=== PATIENT | male | born 1990 | race Caucasian/White ===

== ENCOUNTER 2021-02-15 10:05 | Emergency (ER) | payer MEDICAID, SELFPAY ==
--- NOTE | ~2021-02-15 | XR_ITS ---
EXAMINATION: XR FOREARM, RIGHT CLINICAL INFORMATION: Pain. Trauma. COMPARISON: None TECHNIQUE: 2 views of the right forearm and 4 views of the right hand and wrist were obtained. FINDINGS: Right forearm: Bone alignment is normal. No fracture or dislocation is seen. Joint spaces are normal. Soft tissues are normal. Right hand and wrist: There is a nondisplaced fracture of the mid right scaphoid bone. No other fracture is seen. Joint spaces are normal. Soft tissues are normal. XR/XR forearm RT 2V IMPRESSION: Right hand and wrist: Nondisplaced fracture of the mid scaphoid bone. Right forearm: Unremarkable exam.
--- NOTE | ~2021-02-15 | XR_ITS ---
EXAMINATION: XR FOREARM, RIGHT CLINICAL INFORMATION: Pain. Trauma. COMPARISON: None TECHNIQUE: 2 views of the right forearm and 4 views of the right hand and wrist were obtained. FINDINGS: Right forearm: Bone alignment is normal. No fracture or dislocation is seen. Joint spaces are normal. Soft tissues are normal. Right hand and wrist: There is a nondisplaced fracture of the mid right scaphoid bone. No other fracture is seen. Joint spaces are normal. Soft tissues are normal. XR/XR hand wrist RT IMPRESSION: Right hand and wrist: Nondisplaced fracture of the mid scaphoid bone. Right forearm: Unremarkable exam.
[2021-02-15 11:15] VITALS: BP 124/77; PULSE 79; RESP 18; TEMP 37; O2SAT 96; BMI 29.2
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
== END 2021-02-15 13:26 | disposition home or self-care (01) ==
PROVIDERS: Emergency Provider Emergency Medicine Emergency Medical Services; PCP Emergency Medicine
DX: S62.024A Nondisplaced fracture of middle third of navicular [scaphoid] bone of right wrist, initial encounter for closed fracture (principal); V86.56XA Driver of dirt bike or motor/cross bike injured in nontraffic accident, initial encounter; Y93.89 Activity, other specified; Y92.9 Unspecified place or not applicable; Y99.9 Unspecified external cause status
CPT/HCPCS: 29125; 73090; 73110; 73130; 99283

== ENCOUNTER 2021-02-21 10:41 | Outpatient (REF) | payer MEDICAID, SELFPAY ==
--- NOTE | ~2021-02-21 | XR_ITS ---
EXAMINATION: RIGHT WRIST WITH SCAPHOID. CLINICAL INFORMATION: Pain in right wrist. COMPARISON: None TECHNIQUE: 5 views. FINDINGS: There is no visible acute fracture, dislocation or subluxation. The intercarpal, radioulnar -carpal and carpometacarpal alignment is normal. The soft tissues are normal. XR/XR wrist RT w scaphoid IMPRESSION: Unremarkable right wrist exam. The scaphoid bone is intact.
--- NOTE | ~2021-02-21 | XR_ITS ---
EXAMINATION: XR WRIST, RIGHT CLINICAL INFORMATION: Right wrist pain. COMPARISON: Most recent right wrist radiographs dated 02/21/2021. TECHNIQUE: AP, oblique, lateral, and scaphoid views of the right wrist. FINDINGS: No acute fracture or dislocation. There is mild sclerosis to the mid pole of the scaphoid with new bone/callus formation, consistent with interval healing of the previously seen nondisplaced scaphoid waist fracture. Normal carpal alignment. No joint space narrowing or marginal osteophytes. No osseous erosion. XR/XR wrist RT w scaphoid IMPRESSION: Healing, nondisplaced scaphoid waist fracture.
== END 2021-02-21 10:42 | disposition home or self-care (01) ==
LOC: HO.XRAY 10:41
PROVIDERS: Visit Provider Orthopaedic Surgery
DX: S62.021A Displaced fracture of middle third of navicular [scaphoid] bone of right wrist, initial encounter for closed fracture (principal)
CPT/HCPCS: 25622; 73110; 99202

== ENCOUNTER → 2021-03-21 13:45 | Outpatient (BNVA) | payer MEDICAID, SELFPAY | PROVIDERS: Visit Provider Orthopaedic Surgery | DX: S62.021D Displaced fracture of middle third of navicular [scaphoid] bone of right wrist, subsequent encounter for fracture with routine healing (principal); F17.200 Nicotine dependence, unspecified, uncomplicated | CPT/HCPCS: 73110; 99212 ==

== ENCOUNTER 2021-04-06 22:04 | Emergency (ER) | payer MEDICAID, SELFPAY ==
--- NOTE | ~2021-04-06 | XR_ITS ---
EXAMINATION: XR CHEST CLINICAL INFORMATION: Chest pain. COMPARISON: None TECHNIQUE: Frontal view of the chest was obtained. FINDINGS: No significant abnormality is noted involving the heart, lungs, mediastinum, bony thorax or soft tissues. XR/XR chest 1V IMPRESSION: Unremarkable chest examination.
[2021-04-06 22:05] VITALS: BP 149/78; PULSE 89; RESP 18; TEMP 36.8; O2SAT 99; BMI 29.2
--- NOTE | 2021-04-06 22:08 | ECG_ITS ---
Test Reason : CHEST PAIN Blood Pressure : / mmHG Vent. Rate : 075 BPM Atrial Rate : 075 BPM P-R Int : 156 ms QRS Dur : 092 ms QT Int : 378 ms P-R-T Axes : 051 053 029 degrees QTc Int : 422 ms Normal sinus rhythm Early repolarization Normal ECG When compared with ECG of 02-DEC-2019 14:56, ST elevation now present in Anterior leads Referred By: Generic ED Physician Electronically Signed By:KASIA PANTOJA
--- NOTE | 2021-04-06 22:31 | ED_ITS ---
HPI - Chest Pain General Chief Complaint: Chest Pain Stated Complaint: CP Time Seen by Provider: 04/06/21 22:31 Source: patient Mode of arrival: ambulatory Limitations: no limitations History of Present Illness HPI narrative: Patient with no known coronary artery disease no other risk factors no history of substance abuse been complaining of pain left chest for last 2 days increases with palpation and movements no nausea no vomiting no shortness of breath it goes to her left upper arm had similar pain multiple t imes in the past. No trauma cough fever Related Data Previous Rx's Medication Instructions Recorded naproxen 500 mg tablet 500 mg PO BID PRN #20 tab 02/15/21 oxycodone-acetaminophen 5 mg-325 1 tab PO TID PRN #9 tab 02/15/21 mg tablet (Percocet) ibuprofen 600 mg tablet 600 mg PO Q6H PRN #20 tab 04/06/21 Allergies Allergy/AdvReac Type Severity Reaction Status Date / Time No Known Allergies Allergy Verified 04/06/21 22:05 Review of Systems Review of Systems: Yes all other systems are reviewed and are negative [facility] Past Medical History Medical History No pertinent past medical history Social History Social History Advance Directives: No Advance Directives Information Provided: Yes Current occupational status: unemployed Current occupation: left hand Physical Exam Vital Signs: Vital Signs: Last Vital Signs Temp 98.2 F 04/06/21 22:05 Pulse 69 04/06/21 22:58 Resp 16 04/06/21 22:58 BP 111/62 04/06/21 22:58 Pulse Ox 98 04/06/21 22:58 Body Mass Index 29.2 Appearance: Alert. Oriented X3. No acute distress. ENT: Pharynx normal. Oral Mucosa moist Neck: Normal inspection. Neck supple. CVS: Normal heart rate and rhythm. Pulses normal. Respiratory: No respiratory distress. Equal air entry bilateral, no wheezing/rales/rhonchi left chest wall tenderness+ Abdomen: Soft and nontender. Bowel sounds are present, Skin: Skin warm and dry. Normal skin color. Normal skin turgor. Extremities: No lower extremity edema. No calf tenderness Neuro: Oriented X 3. MDM - Chest Pain MDM Narrative Medical decision making narrative: Patient has atypical chest pain with heart score of 0 normal EKG chest pain been there for last 2 days listed able on palpation and movements of the left arm. Will give Toradol cardiac enzymes are negative EKG is normal discharge patient home Lab Data Attestation: I reviewed the patient's lab results. Result diagrams: 04/06/21 22:31 04/06/21 22:31 Labs: Lab Results 04/06/21 04/06/21 04/06/21 Range/Units 22:31 22:31 22:31 WBC 9.0 (4.8-10.8) X10*3/uL RBC 4.94 (4.60-5.80) X10*6/uL Hgb 15.1 (14.0-18.0) g/dl Hct 43.4 (42-52) % MCV 87.9 (80-98) fL MCH 30.6 (27.0-33.0) pg MCHC 34.8 (31.0-36.0) g/dl RDW 12.6 (11.0-16.0) % Plt Count 199 (160-400) X10*3/uL MPV 11.3 (9.4-12.4) fL Immature Gran % (Auto) 0.2 (0.0-0.4) % Neut % (Auto) 67.3 (45-73) % Lymph % (Auto) 26.7 (20-40) % Schleicher % (Auto) 4.9 (2-11) % Eos % (Auto) 0.7 (0-4) % Baso % (Auto) 0.2 (0-2) % Lymph # (Auto) 2.4 (1.2-4.9) X10*3/uL Schleicher # (Auto) 0.4 (0.1-1.2) X10*3/uL Eos # (Auto) 0.1 (0.0-0.4) X10*3/uL Baso # (Auto) 0.0 (0.0-0.2) X10*3/uL Abs Immat Gran (auto) 0.02 (0.00-0.03) X10*3/uL Absolute Neuts (auto) 6.1 (2.0-8.3) X10*3/uL Absolute Nucleated RBC 0.000 (0.0-0.012) X10*3/uL Nucleated RBC % (auto) 0.0 (0.0-0.2) /100WBC Sodium 140 (135-145) mmol/L Potassium 3.4 (3.3-5.1) mmol/L Chloride 108 (96-108) mmol/L Carbon Dioxide 24 (22-29) mmol/L Anion Gap 11 L (12-20) BUN 6 L (9-16) mg/dL Creatinine 0.79 (0.5-1.4) mg/dL Estim Creat Clear Calc 162.5 Estimated GFR > 60 Random Glucose 120 H (60-115) mg/dL Calcium 9.1 (8.4-10.2) mg/dL Troponin I High Sens < 3.5 (<3.5-35.0) ng/L ECG Data ECG #1: Interpretation: Normal sinus rhythm rate 75 beats per minute early repolarization changes no acute ST T wave changes acute ischemia Scores Heart Score History: -0- slightly suspicious ECG: -0- normal Age: -0- < or = 45 Risk factory: -0- no risk factors known Troponin: -0- < or = normal limit Score: 0 Risk: 1.7% Discharge Plan Discharge Clinical Impression: Costalchondritis Patient Disposition: Home, Self-Care Instructions: Costochondritis (ED) Additional Instructions: Your chest pain is likely musculoskeletal take ibuprofen for pain Follow-up with PCP if any concerns Prescriptions: New ibuprofen 600 mg tablet 600 mg PO Q6H PRN (Reason: pain) Qty: 20 RF: 0 No Action oxycodone-acetaminophen [Percocet] 5-325 mg tablet 1 tab PO TID PRN (Reason: pain) Qty: 9 RF: 0 naproxen 500 mg tablet 500 mg PO BID PRN (Reason: pain) Qty: 20 RF: 0
[2021-04-06 22:36] LABS: Basophils Percent Auto 0.2 % (0-2); Eosinophils Absolute Auto 0.1 X10*3/uL (0.0-0.4); Eosinophils Percent Auto 0.7 % (0-4); Hematocrit 43.4 % (42-52); Hemoglobin 15.1 g/dl (14.0-18.0); Imm Gran Abs Auto 0.02 X10*3/uL (0.00-0.03); Imm Gran Pct Auto 0.2 % (0.0-0.4); Lymphocytes Absolute Auto 2.4 X10*3/uL (1.2-4.9); Lymphocytes Percent Auto 26.7 % (20-40); MANUAL DIFF FLAG NO; Mean Corpuscular HGB Conc 34.8 g/dl (31.0-36.0); Mean Corpuscular Hemoglobin 30.6 pg (27.0-33.0); Mean Corpuscular Volume 87.9 fL (80-98); Mean Platelet Volume 11.3 fL (9.4-12.4); Monocytes Absolute Auto 0.4 X10*3/uL (0.1-1.2); Monocytes Percent Auto 4.9 % (2-11); Neutrophils Absolute Auto 6.1 X10*3/uL (2.0-8.3); Neutrophils Percent Auto 67.3 % (45-73); Platelet Count 199 X10*3/uL (160-400); Red Blood Count 4.94 X10*6/uL (4.60-5.80); Red Cell Distribution Width 12.6 % (11.0-16.0)
[2021-04-06 22:51] LABS: Anion Gap 11 (12-20); Blood Urea Nitrogen 6 mg/dL (9-16); Calcium 9.1 mg/dL (8.4-10.2); Carbon Dioxide 24 mmol/L (22-29); Chloride 108 mmol/L (96-108); Creatinine Clr Calc Pharmacy 162.5; Estimated Glomerular Filt Rate > 60; Glucose Random 120 mg/dL (60-115); Potassium 3.4 mmol/L (3.3-5.1); Sodium 140 mmol/L (135-145)
[2021-04-06 22:58] VITALS: BP 111/62; PULSE 69; RESP 16; O2SAT 98
[2021-04-06 22:58] LABS: Troponin-I High Sensitivity < 3.5 ng/L (<3.5-35.0)
[2021-04-06] MEDS: Ketorolac Tromethamine 15 MG/ML VIAL 60 MG IM (23:13)
== END 2021-04-06 23:52 | disposition home or self-care (01) ==
PROVIDERS: Emergency Provider Internal Medicine
DX: M94.0 Chondrocostal junction syndrome [Tietze] (principal); R07.9 Chest pain, unspecified; Z79.899 Other long term (current) drug therapy
CPT/HCPCS: 36415; 71045; 80048; 84484; 85025; 93005; 96372; 99284; 99285; J1885

== ENCOUNTER 2023-05-07 16:31 | Emergency (ER) | payer MEDICAID, SELFPAY ==
[2023-05-07 16:56] VITALS: BP 139/87; PULSE 85; RESP 18; TEMP 36.4; O2SAT 97; BMI 31.7
--- NOTE | 2023-05-07 17:00 | ED_ITS ---
HPI - General Adult General Chief complaint: General Medical Stated complaint: can't smell, runny nose, no appetite Time Seen by Provider: 05/07/23 18:44 Source: patient Mode of arrival: ambulatory Limitations: no limitations History of Present Illness HPI narrative: Patient spoke someone at work with COVID yesterday since then complains nasal congestion unable to smell poor appetite body aches patient already received the vaccination against COVID no shortness of breath no significant cough Related Data Previous Rx's Medication Instructions Recorded naproxen 500 mg tablet 500 mg PO BID PRN pain #20 tabs 02/15/21 oxycodone-acetaminophen 5 mg-325 1 tab PO TID PRN pain #9 tabs 02/15/21 mg tablet (Percocet) ibuprofen 600 mg tablet 600 mg PO Q6H PRN pain #20 tabs 04/06/21 Allergies Allergy/AdvReac Type Severity Reaction Status Date / Time No Known Allergies Allergy Verified 04/06/21 22:05 Review of Systems Review of Systems: Yes all other systems are reviewed and are negative [facility] Past Medical History Medical History No pertinent past medical history Social History Social History Advance Directives: No Advance Directives Information Provided: No Current occupational status: unemployed Current occupation: left hand Physical Exam ED Vital Signs: Vital Signs - 24 hr 05/07/23 16:56 Temperature 97.5 F Pulse Rate 85 Respiratory Rate 18 Blood Pressure 139/87 Pulse Oximetry 97 Oxygen Delivery Method Room Air BMI result Body Mass Index 31.7 Appearance: Alert. Oriented X3. No acute distress. ENT: Pharynx normal. Oral Mucosa moist Neck: Normal inspection. Neck supple. CVS: Normal heart rate and rhythm. Pulses normal. Respiratory: No respiratory distress. Equal air entry bilateral, no wheezing/rales/rhonchi Skin: Skin warm and dry. Normal skin color. Normal skin turgor. Extremities: No lower extremity edema. Neuro: Oriented X 3. Course Course Course Narrative: RME: 33 yold male presents to the ED for headache, runny nose, chills after exposure to coworker who is positive for covid. patient is well appearing. covid and influenza ordered Medical Decision Making Medical Decision Making MDM Narrative: Patient with viral URI negative COVID negative influenza Differential Diagnosis Differential Diagnoses: The differential diagnosis associated with the presentation includes COVID/flu/viral Lab Data [facility] Lab Attestation statement: I reviewed the patient's lab results. Labs: Lab Results 05/07/23 Range/Units 17:22 COVID-19 ([facility]ERWIN) Negative (Negative) COVID-19 Clin Com See Note Influenza Type A (SHAYE) Negative (Negative) Influenza Type B (SHAYE) Negative (Negative) Influenza A & B Note See Note Discharge Plan Discharge Clinical Impression: Acute upper respiratory infection Patient Disposition: Home, Self-Care Instructions: Upper Respiratory Infection (ED) Additional Instructions: use humidifier/steam vapor Your COVID test today is negative If the symptom continues please recheck for the COVID in 2- 3 days Prescriptions: No Action oxycodone-acetaminophen [Percocet] 5-325 mg tablet 1 tab PO TID PRN (Reason: pain) Qty: 9 0RF Rx Instructions: side effect is drowsiness. Do not take at work or while driving. naproxen 500 mg tablet 500 mg PO BID PRN (Reason: pain) Qty: 20 0RF ibuprofen 600 mg tablet 600 mg PO Q6H PRN (Reason: pain) Qty: 20 0RF Interventions: ED Discharge Assessment Last Done: 05/07/23 19:40 Discharge Date/Time: 05/07/23 19:41
[2023-05-07 17:48] LABS: COVID-19 Test Negative (Negative); IDNOW Serial# 9DB6401D; IDNOW Serial# BCCEAD1C; Influenza A Negative (Negative); Influenza B2 Negative (Negative)
== END 2023-05-07 19:41 | disposition home or self-care (01) ==
PROVIDERS: Physician Assistant; Emergency Provider Internal Medicine; PCP Pediatrics
DX: J06.9 Acute upper respiratory infection, unspecified (principal); R43.8 Other disturbances of smell and taste; Z11.52 Encounter for screening for COVID-19; Z20.822 Contact with and (suspected) exposure to COVID-19
CPT/HCPCS: 87502; 87635; 99282; 99283

== ENCOUNTER 2023-06-07 09:24 | Emergency (ER) | payer MEDICAID, SELFPAY ==
[2023-06-07 09:48] VITALS: BP 137/77; PULSE 76; RESP 20; TEMP 36.3; O2SAT 96; BMI 32.4
--- NOTE | 2023-06-07 09:54 | ED.GENADULT ---
HPI - General Adult General Chief complaint: General Medical Stated complaint: COVID Test Time Seen by Provider: 06/07/23 09:54 Source: patient, RN notes reviewed and old records reviewed Mode of arrival: ambulatory History of Present Illness HPI narrative: 33-year-old male with no significant past medical history presenting to the ED requesting COVID-19 testing as was exposed at his job. Reports generalized fatigue at present. Denies other symptoms including fever, chills, cough, CP/SOB, travel. Onset (ago): day(s) Related Data Previous Rx's Medication Instructions Recorded naproxen 500 mg tablet 500 mg PO BID PRN pain #20 tabs 02/15/21 oxycodone-acetaminophen 5 mg-325 1 tab PO TID PRN pain #9 tabs 02/15/21 mg tablet (Percocet) ibuprofen 600 mg tablet 600 mg PO Q6H PRN pain #20 tabs 04/06/21 Allergies Allergy/AdvReac Type Severity Reaction Status Date / Time No Known Allergies Allergy Verified 04/06/21 22:05 Review of Systems Review of Systems: Constitutional: No Fever, No Chills, +fatigue ENT/Mouth: No Ear Pain, No Nasal Congestion, No sore throat, No Rhinorrhea, No Swallowing Difficulty Cardiovascular: No Chest Pain, No SOB Respiratory: No Cough, No Sputum, No Wheezing Gastrointestinal: No Nausea, No Vomiting, No Abdominal pain Musculoskeletal: No joint pain, No Myalgias, No Joint Swelling Skin: No Skin Lesions, No rash Neuro: No Weakness Yes all other systems are reviewed and are negative Constitutional: Constitutional: Reports as per [facility] Past Medical History Attestation statement: The following information was validated with the patient. Source: old records reviewed Medical History No pertinent past medical history Social History Social History Advance Directives: No Current occupational status: unemployed Current occupation: left hand Physical Exam ED Vital Signs: Vital Signs - 24 hr 06/07/23 09:48 Temperature 97.3 F Pulse Rate 76 Respiratory Rate 20 Blood Pressure 137/77 Pulse Oximetry 96 Oxygen Delivery Method Room Air BMI result Body Mass Index 32.4 Const General: cooperative and no acute distress Orientation/consciousness: patient oriented x3 Limitations: no limitations HENMT Head: Yes normal to inspection and Yes atraumatic Ears: hearing grossly normal bilaterally General nose exam: Normal external nose present Face and sinus: Yes normal facial exam Throat: Yes posterior oropharynx normal Eyes General: appearance normal, both eyes and all related structures EOM: EOMs intact bilaterally Neck Neck: Yes normal visual inspection and Yes no meningeal signs Resp Effort & Inspection: normal respiratory effort and no respiratory distress Auscultation: no crackles, no rales, no rhonchi and no wheezes Cardio Rate: regular rate Skin Rashes: no rashes Wounds: no wounds Neuro General: patient oriented x3, tone normal and no meningeal signs Cranial nerves: Yes CN's II-XII intact bilaterally Gait exam (Neuro): Normal gait present Extrem General: Yes normal to inspection Course Course Course Narrative: COVID and influenza negative Results discussed with patient including worrisome signs and symptoms and strict return precautions, and when to return to the emergency department. They verbalized understanding and feel safe for discharge at this time. Medical Decision Making Medical Decision Making [facility] Narrative: 33-year-old male with no significant past medical history presenting to the ED requesting COVID-19 testing as was exposed at his job. On exam vital signs stable, NAD, nontoxic appearing, return for viral illness including COVID-19. Low suspicion for ACS, PE or pneumonia Plan: COVID and influenza testing Please refer to course for remaining clinical decision making, interpretation of labs/imaging results, and discussions with consultants and/or family members. Differential Diagnosis Differential Diagnoses: The differential diagnosis associated with the presentation includes As above Lab Data [facility] Lab Attestation statement: I reviewed the patient's lab results. Labs: Lab Results 06/07/23 Range/Units 09:35 COVID-19 ([facility]ERWIN) Negative (Negative) COVID-19 Clin Com See Note Influenza Type A (SHAYE) Negative (Negative) Influenza Type B (SHAYE) Negative (Negative) Influenza A & B Note See Note External Record Review External record reviewed: Inpatient record, Office record, Outpatient record, Prior outpatient labs, Prior outpatient radiology, Primary care record and Outside ED record Tests considered The following testing was considered but not selected: As above Discharge Plan Discharge Clinical Impression: COVID-19 ruled out by laboratory testing Patient Disposition: Home, Self-Care Additional Instructions: You tested negative for COVID & flu Follow-up with your doctor Is symptoms persist or worsen return to the ED Follow-up with your doctor Prescriptions: No Action oxycodone-acetaminophen [Percocet] 5-325 mg tablet 1 tab PO TID PRN (Reason: pain) Qty: 9 0RF Rx Instructions: side effect is drowsiness. Do not take at work or while driving. naproxen 500 mg tablet 500 mg PO BID PRN (Reason: pain) Qty: 20 0RF ibuprofen 600 mg tablet 600 mg PO Q6H PRN (Reason: pain) Qty: 20 0RF Referrals: Sukhwinder Mitchell MD [Primary Care Provider] - Stand Alone Forms: Work/School Release Interventions: ED Discharge Assessment Last Done: 06/07/23 10:51 Discharge Date/Time: 06/07/23 10:51
[2023-06-07 10:03] LABS: COVID-19 Test Negative (Negative); IDNOW Serial# BCCEAD1C
[2023-06-07 10:27] LABS: IDNOW Serial# BCCEAD1C; Influenza A Negative (Negative)
[2023-06-07 10:28] LABS: Influenza B2 Negative (Negative)
== END 2023-06-07 10:51 | disposition home or self-care (01) ==
PROVIDERS: Physician Assistant; Emergency Provider Emergency Medicine; PCP Pediatrics
DX: R53.83 Other fatigue (principal); Z11.52 Encounter for screening for COVID-19; Z20.822 Contact with and (suspected) exposure to COVID-19; Z79.899 Other long term (current) drug therapy
CPT/HCPCS: 87502; 87635; 99282; 99283

== ENCOUNTER 2024-06-04 10:05 | Emergency (ER) | payer MEDICAID, SELFPAY ==
[2024-06-04 10:12] VITALS: BP 142/98; PULSE 80; O2SAT 99
[2024-06-04 10:21] VITALS: BP 138/86; PULSE 69; RESP 16; TEMP 36.6; O2SAT 98; BMI 30.7
[2024-06-04 10:44] LABS: MANUAL DIFF FLAG NO
[2024-06-04 10:45] VITALS: BP 126/82; PULSE 57; RESP 20; O2SAT 100
[2024-06-04 10:51] LABS: Basophils Percent Auto 0.3 % (0-2); Eosinophils Percent Auto 0.4 % (0-4); Hematocrit 49.5 % (42.0-52.0); Hemoglobin 17.2 g/dl (14.0-18.0); Imm Gran Abs Auto 0.02 X10*3/uL (0.00-0.03); Imm Gran Pct Auto 0.3 % (0.0-0.4); Lymphocytes Absolute Auto 2.5 X10*3/uL (1.2-4.9); Lymphocytes Percent Auto 32.1 % (20-40); Mean Corpuscular HGB Conc 34.7 g/dl (31.0-36.0); Mean Corpuscular Hemoglobin 30.6 pg (27.0-33.0); Mean Corpuscular Volume 88.1 fL (80.0-98.0); Mean Platelet Volume 11.1 fL (9.4-12.4); Monocytes Absolute Auto 0.3 X10*3/uL (0.1-1.2); Monocytes Percent Auto 4.3 % (2-11); Neutrophils Absolute Auto 4.9 x10*3/uL (2.0-8.3); Neutrophils Percent Auto 62.6 % (45-73); Platelet Count 259 X10*3/uL (160-400); Red Blood Count 5.62 X10*6/uL (4.60-5.80); Red Cell Distribution Width 12.3 % (11.0-16.0); White Blood Count 7.8 X10*3/uL (4.8-10.8)
[2024-06-04 10:53] LABS: INTERNATIONAL NORM RATIO 1.1 (0.9-1.1); Prothrombin Time 12.3 SEC (10.9-12.4)
[2024-06-04 10:56] LABS: Glucose, Whole Blood 99 mg/dL (60-115)
[2024-06-04 11:02] LABS: Alanine Aminotransferase 74 U/L (0-40); Albumin Level 4.3 g/dL (3.5-5.0); Alkaline Phosphatase 90 U/L (39-117); Anion Gap 13 (12-20); Aspartate Amino Transferase 43 U/L (5-37); Bilirubin Direct 0.1 mg/dL (0.0-0.5); Bilirubin Total 0.3 mg/dL (0.0-1.0); Blood Urea Nitrogen 9 mg/dL (9-16); Calcium 8.8 mg/dL (8.4-10.2); Carbon Dioxide 21 mmol/L (22-29); Chloride 109 mmol/L (96-108); Creatinine Clr Calc Pharmacy 146.7; Estimated Glomerular Filt Rate > 60; Glucose Random 107 mg/dL (60-115); Lipase 18 U/L (8-78); Potassium 3.5 mmol/L (3.3-5.1); Sodium 139 mmol/L (135-145); Total Protein 7.6 g/dL (6.5-8.0)
== END 2024-06-04 15:54 | disposition left against medical advice (07) ==
PROVIDERS: Emergency Provider Student in an Organized Health Care Education/Training Program
DX: R10.31 Right lower quadrant pain (principal); Z79.899 Other long term (current) drug therapy
CPT/HCPCS: 36415; 80048; 80076; 82947; 83690; 85025; 85610; 85730; 99281; 99282

== ENCOUNTER 2025-02-23 09:48 | Emergency (ER) | payer SELFPAY ==
[2025-02-23 10:16] VITALS: BP 140/82; PULSE 81; RESP 16; TEMP 36.6; O2SAT 99; BMI 26.5
--- NOTE | 2025-02-23 11:40 | ED.GENADULT ---
HPI - General Adult General Chief complaint: General Medical Stated complaint: pt states bloating and its like a ball Time Seen by Provider: 02/23/25 11:40 Source: patient and family (aunt) Mode of arrival: ambulatory Limitations: no limitations History of Present Illness ED Provider: HPI narrative: 35-year-old male presenting with concerns of noting that he has a lump above his belly button, has been there for a long time there was no pain no nausea no vomiting or diarrhea. No redness. Related Data Previous Rx's ?Medication ?Instructions ?Recorded naproxen 500 mg tablet 500 mg PO BID PRN pain #20 tabs 02/15/21 oxycodone-acetaminophen 5 mg-325 1 tab PO TID PRN pain #9 tabs 02/15/21 mg tablet (Percocet) ibuprofen 600 mg tablet 600 mg PO Q6H PRN pain #20 tabs 04/06/21 Allergies Allergy/AdvReac Type Severity Reaction Status Date / Time No Known Allergies Allergy Verified 02/23/25 10:19 Review of Systems Constitutional: Constitutional: Reports as per [facility] Past Medical History Medical History No pertinent past medical history Social History Social History Current occupational status: unemployed Current occupation: left hand Physical Exam ED Vital Signs: Vital Signs - 24 hr 02/23/25 10:16 Temperature 97.9 F Pulse Rate 81 Respiratory Rate 16 Blood Pressure 140/82 H Pulse Oximetry 99 Oxygen Delivery Method Room Air BMI result Body Mass Index 26.5 Const Other: Gen: ?Overall well-appearing patient CV: RRR, no obvious murmurs appreciated Resp: ?No wheezing rales rhonchi no stridor moving air well Abd: ?Bowel sounds are present, no tenderness no rebound no rigidity, patient has evidence of diastasis recti MSK: FROM, strength 5/5 all extremities Skin: Warm, dry, intact, Neuro: ?Alert and oriented x3, moving upper and lower extremities symmetrically, no obvious facial asymmetry noted Medical Decision Making Medical Decision Making [facility] Narrative: Patient is presenting with physical examination consistent with diastasis recti without any other findings to suspect differential as below. Differential Diagnosis Differential Diagnoses: The differential diagnosis associated with the presentation includes (Hernia, volvulus, SBO, diastasis recti) Independent Historian Clinical information obtained from an independent historian. History obtained from or confirmed by: Other (Patient's aunt) Tests considered The following testing was considered but not selected: CT abdomen and pelvis with IV contrast, blood work including CBC, CMP, lipase Discharge Plan Discharge Clinical Impression: Diastasis recti Patient Disposition: Home, Self-Care Additional Instructions: You can look up online and look at pictures of what diastasis recti is, this is not a hernia but weakening of the fascia connecting abdominal muscles, typically it does not cause any issues however if it becomes painful if you have any other issues concerns I would recommend seeing a surgeon to discuss with the any management as indicated Prescriptions: No Action oxycodone-acetaminophen [Percocet] 5-325 mg tablet 1 tab PO TID PRN (Reason: pain) Qty: 9 0RF Rx Instructions: side effect is drowsiness. Do not take at work or while driving. naproxen 500 mg tablet 500 mg PO BID PRN (Reason: pain) Qty: 20 0RF ibuprofen 600 mg tablet 600 mg PO Q6H PRN (Reason: pain) Qty: 20 0RF Ref[place] [facility] [place]Provider Group, General Surgery] Clinical Impression: Diastasis recti Print Language: Sinhala
[2025-02-23 12:07] VITALS: BP 140/82; PULSE 81; RESP 16; TEMP 36.6; O2SAT 99
== END 2025-02-23 12:07 | disposition home or self-care (01) ==
PROVIDERS: Emergency Provider Emergency Medicine
DX: M62.08 Separation of muscle (nontraumatic), other site (principal); R22.2 Localized swelling, mass and lump, trunk
CPT/HCPCS: 99282